=== PATIENT | female | born 1975 | race Caucasian/White ===

== ENCOUNTER 2016-10-27 12:06 | Emergency (ER) | payer SELFPAY ==
[2016-10-27] MEDS ORDERED: KETOROLAC TROMETHAMINE INJ/PF 30 MG/1 ML SDV IV ONE (12:41)
[2016-10-27] MEDS ORDERED: NORMAL SALINE 1000 ML 1,000 ML IV ONE (12:41)
[2016-10-27] MEDS ORDERED: ONDANSETRON HCL INJ/PF 4 MG/2 ML SDV IV ONE ×2 (12:41→14:15)
[2016-10-27 13:32] LABS: APPEARANCE,URINE CLEAR; BILIRUBIN,URINE NEGATIVE (NEGATIVE); GLUCOSE, URINE NEGATIVE (NEGATIVE); KETONES,URINE NEGATIVE (NEGATIVE); LEUKOCYTE ESTERASE,URINE NEGATIVE (NEGATIVE); NITRITE,URINE NEGATIVE (NEGATIVE); PROTEIN,URINE NEGATIVE (NEGATIVE); UROBILINOGEN,URINE NEGATIVE mg/dL (<2.0)
[2016-10-27 14:08] LABS: ABSOLUTE EOSINOPHILS # (AUTO) 0.1 10^3/uL (0.0-0.6); ABSOLUTE MONOCYTES (AUTO) 0.6 10^3/uL (0.1-1.4); ABSOLUTE NEUT (AUTO) 3.7 10^3/uL (1.7-8.2); BASOPHILS % (AUTO) 0.6 % (0-2); EOSINOPHILS % (AUTO) 1.4 % (0-6); HEMATOCRIT 35.5 % (36.0-47.0); HEMOGLOBIN 12.1 g/dL (12.0-15.5); HGB HCT DIFFERENCE 0.8; LYMPHOCYTES % (AUTO) 40.5 % (13-45); MEAN CORPUSCULAR HEMOGLOBIN 29.5 pg (27.0-33.4); MEAN CORPUSCULAR HGB CONC 34.1 g/dL (32.0-36.0); MEAN CORPUSCULAR VOLUME 86 fl (80-97); MONOCYTES % (AUTO) 7.7 % (3-13); RED BLOOD COUNT 4.11 10^6/uL (3.72-5.28); RED CELL DISTRIBUTION WIDTH 13.4 % (11.5-14.0); SEGMENTED NEUTROPHILS % (AUTO) 49.8 % (42-78); WHITE BLOOD COUNT 7.3 10^3/uL (4.0-10.5)
[2016-10-27] MEDS ORDERED: FENTANYL CITRATE INJ/PF 100 MCG/2 ML AMPUL IV ONE (14:15)
[2016-10-27] MEDS ORDERED: METOCLOPRAMIDE HCL INJ/PF 10 MG/2 ML SDV IV ONE (14:15)
--- NOTE | 2016-10-27 14:16 | ER Document Report ---
ED General - General Chief Complaint: Abdominal Pain Stated Complaint: ABDOMINAL PAIN,BACK PAIN,RIGHT LEG PAIN Time Seen by Provider: 10/27/16 12:40 Notes: Female with a host of chronic medical issues including radical hysterectomy congestive heart failure migraines chronic pain on an extensive opioid regimen incidentally visiting from [place] presenting with several symptoms: Most worrisome to her as her abdominal pain which has been going on for a few weeks but worse today right upper quadrant radiating to left upper quadrant constant with nausea. She said she could not take any of her pain medicine this morning. No diarrhea, normal gas normal bowel movement today but feels "distended". She has never had a bowel obstruction. She has no fevers or chills. She also has tooth pain and facial swelling migraine symptoms left- sided visual loss bilateral arm and leg weakness and an episode of bladder incontinence yesterday. She has known spinal stenosis. Denies saddle anesthesia or numbness or tingling at this time. She also has pain that radiates from her belly to her chest to her jaw. TRAVEL OUTSIDE OF THE [place] IN LAST 30 DAYS: No - Related Data Allergies/Adverse Reactions: bupropion [From Wellbutrin] Allergy (Verified 10/27/16 12:17) cyclobenzaprine [From Flexeril] Allergy (Verified 10/27/16 12:17) diphenhydramine [From Benadryl] Allergy (Verified 10/27/16 12:17) latex Allergy (Verified 10/27/16 12:17) Sulfa (Sulfonamide Antibiotics) Allergy (Verified 10/27/16 12:17) sumatriptan [From Imitrex] Allergy (Verified 10/27/16 12:17) Past Medical History - General Information source: Patient - Social History Smoking Status: Never Smoker Chew tobacco use (# tins/day): No Frequency of alcohol use: None Drug Abuse: None Family History: None Renal/ Medical History: Denies: Hx Peritoneal Dialysis Musculoskeltal Medical History: Reports Hx Arthritis Review of Systems - Review of Systems Notes: REVIEW OF SYSTEMS GEN: Denies fever, chills, weight loss ENT: Denies sore throat, nasal discharge, ear pain EYES: Denies blurry vision, eye pain, discharge thinks the whites of her eyes are turning red. CV: Denies chest pain, palpitations, edema RESP: Denies cough, shortness of breath, wheezing GI: Pain abdominal with nausea MSK: Denies joint pain/swelling, edema, SKIN: Denies rash, skin lesions LYMPH: Denies swollen glands/lymph nodes NEURO: Chronic back pain intermittent leg and arm weakness. PSYCH: Denies depression, suicidal or homicidal ideation PHYSICAL EXAMINATION General: No acute distress, well-nourished Head: Atraumatic, normocephalic ENT: Mouth normal, oropharynx moist, no exudates or tonsillar enlargement very subtle eyelid swelling on the left without redness. Eyes: Conjunctiva normal, pupils equal, lids normal Neck: No JVD, supple, no guarding CVS: Normal rate, regular rhythm, no murmurs Resp: No resp distress, equal and normal breath sounds bilaterally GI: Nondistended, soft, bilateral upper quadrant tenderness to palpation, no rebound or guarding Ext: No deformities, no edema, normal range of motion in upper and lower ext Back: No CVA or midline TTP Skin: No rash, warm Lymphatic: No lymphadeopathy noted Neuro: Awake, alert. Face symmetric. GCS 15. Plantar drift. Intact sensation. Intact strength in upper extremities. Physical Exam - Vital signs Vitals: Temp Pulse Resp BP Pulse Ox 98.0 F 89 18 158/106 H 100 10/27/16 12:15 10/27/16 12:15 10/27/16 12:15 10/27/16 12:15 10/27/16 12:15 Course - Re-evaluation Re-evalutation: 10/27/16 14:14 5-year-old female on chronic pain treatment with multiple chronic medical issues presenting with a constellation of symptoms from nearly every body system. She has normal vital signs and appears quite well. Objectively, I noticed mild left eyelid swelling but no focal visual deficits, or other neurologic symptoms. Terms of her abdomen she does have a history of abdominal surgery and has some upper abdominal pain. She states that her gallbladder is still in place but was "grainy" on a prior CT scan. Her differential at this point includes gastritis cholecystitis bowel obstruction or other intra- abdominal infection or mechanical complication. She has a host of medication allergies and a very high opiate tolerance. We discussed at length how to manage her symptoms in the emergency department and agreed on a single dose of opioid medication once she can prove that she has a ride home, as well as Reglan and Zofran. She will be kept n.p.o. and I will obtain a CT scan. 10/27/16 15:40 Lab results are reassuring. Her CT is negative. She did have a small contrast extravasation during her scan, on exam at 3:40 PM there is mild forearm swelling at the site but she has no pain with passive extension of any of her compartments, no finger tingling or restricted range of motion and no other apparent complication. I gave her instructions on how to manage this at home but I do not believe she requires extended observation in the ED. She feels better after the medications. I stressed to her that she does have a lot going on although I did not find an emergency is thakkar for her to return to [place] soon as possible to see her primary care doctor to sort out her issues. I have discussed with the patient there likely diagnosis, aftercare plan, follow -up plans and my usual and customary return precautions. They verbalized understanding of this. - Vital Signs Vital signs: Temp Pulse Resp BP Pulse Ox 98.0 F 89 18 158/106 H 100 10/27/16 12:15 10/27/16 12:15 10/27/16 12:15 10/27/16 12:15 10/27/16 12:15 - Laboratory Result Diagrams: 10/27/16 13:52 10/27/16 13:52 Laboratory results interpreted by me: 10/27/16 10/27/16 13:52 13:52 Hct 35.5 L AST 43 H - Diagnostic Test Radiology reviewed: Image reviewed, Reports reviewed Discharge - Discharge Clinical Impression: Abdominal pain, other specified site Condition: Good Disposition: HOME, SELF-CARE Instructions: Abdominal Pain ([facility]) Additional Instructions: Please follow-up with your regular doctor within 5-7 days
[2016-10-27 14:32] LABS: ALANINE AMINOTRANSFERASE 50 U/L (9-52); ALBUMIN 4.4 g/dL (3.5-5.0); ALKALINE PHOSPHATASE 66 U/L (38-126); ANION GAP 12 (5-19); ASPARTATE AMINO TRANSFERASE 43 U/L (14-36); BILIRUBIN,DIRECT 0.3 mg/dL (0.0-0.4); BILIRUBIN,TOTAL 0.3 mg/dL (0.2-1.3); BLOOD UREA NITROGEN 17 mg/dL (7-20); CALCIUM 9.5 mg/dL (8.4-10.2); CARBON DIOXIDE 26 mmol/L (22-30); CHLORIDE 103 mmol/L (98-107); CREATININE RESULT 0.62 mg/dL (0.52-1.25); GLUCOSE 94 mg/dL (75-110); LIPASE 76.9 U/L (23-300); POTASSIUM 4.6 mmol/L (3.6-5.0); SODIUM 140.9 mmol/L (137-145); TOTAL PROTEIN 7.5 g/dL (6.3-8.2)
--- NOTE | 2016-10-27 15:31 | RADIOLOGY REPORT (SQ) ---
EXAM DESCRIPTION: CT ABD/PELVIS WITH IV ONLY COMPLETED DATE/TIME: 10/27/2016 3:21 pm REASON FOR STUDY: abd pain COMPARISON: None. TECHNIQUE: CT scan of the abdomen and pelvis performed using helical scanning technique with dynamic intravenous contrast injection. No oral contrast. Images reviewed with lung, soft tissue, and bone windows. Reconstructed coronal and sagittal MPR images reviewed. Delayed images for evaluation of the urinary system also acquired. All images stored on PACS. All CT scanners at this facility use dose modulation, iterative reconstruction, and/or weight based d osing when appropriate to reduce radiation dose to as low as reasonably achievable (ALARA). [facility]: Dose Right [facility]: CareDose [facility]: Dose Right [facility]: Teradose 4D [facility]: Venuemob CONTRAST TYPE AND DOSE: contrast/concentration: Isovue 370.00 mg/ml; Total Contrast Delivered: 90.0 ml; Total Saline Delivered: 29.5 ml RENAL FUNCTION: BUN 17 creatinine 0.62. RADIATION DOSE: Up-to-date CT equipment and radiation dose reduction techniques were employed. CTDIv ol: 14.2 - 18.6 mGy. DLP: 1708 mGy-cm.. LIMITATIONS: None. FINDINGS: LOWER CHEST: No significant findings. No nodules or infiltrates. LIVER: Normal size. No masses. No dilated ducts. SPLEEN: Normal size. No focal lesions. PANCREAS: No masses. No significant calcifications. No adjacent inflammation or peripancreatic fluid collections. Pancreatic duct not dilated. GALLBLADDER: No identified stones by CT criteria. No inflammatory changes to suggest cholecystitis. ADRENAL GLANDS: No significant masses or asymmetry. RIGHT KIDNEY AND URETER: No solid masses. No significant calcifications. No hydronephrosis or hyd roureter. LEFT KIDNEY AND URETER: No solid masses. No significant calcifications. No hydronephrosis or hydr oureter. AORTA AND VESSELS: No aneurysm. No dissection. Renal arteries, SMA, celiac without stenosis. RETROPERITONEUM: No retroperitoneal adenopathy, hemorrhage or masses. BOWEL AND PERITONEAL CAVITY: No masses or inflammatory changes. No free fluid or peritoneal masses. APPENDIX: Surgically absent. PELVIS: Numerous surgical clips in the lower abdomen and pelvis. No mass. No free fluid. Normal namrata dder. ABDOMINAL WALL: No masses. No hernias. BONES: No significant or acute findings. OTHER: No other significant finding. IMPRESSION: NO SIGNIFICANT OR ACUTE FINDING IN THE ABDOMEN OR PELVIS ON CT SCAN WITH IV CONTRAST. TECHNICAL DOCUMENTATION: JOB ID: [id number] Quality ID # [id number]: Final reports with documentation of one or more dose reduction techniques (e.g., Au tomated exposure control, adjustment of the mA and/or kV according to patient size, use of iterative reconstruction technique) 2010 [employer]- All Rights Reserved
[2016-10-27 17:58] VITALS: BP 152/98
--- NOTE | 2016-10-28 12:46 | EKG REPORT ---
SEVERITY:- NORMAL ECG - SINUS RHYTHM : Confirmed by: Rachel Nguyen MD 28-Oct-2016 12:46:29
== END 2016-10-27 17:54 | disposition home or self-care (01) ==
LOC: ER 12:06
DX: R10.11 Right upper quadrant pain (principal); R11.0 Nausea; K02.9 Dental caries, unspecified; R22.0 Localized swelling, mass and lump, head; H54.61 Unqualified visual loss, right eye, normal vision left eye; R32 Unspecified urinary incontinence; R53.1 Weakness; M48.00 Spinal stenosis, site unspecified; M54.9 Dorsalgia, unspecified; G89.29 Other chronic pain; Z79.891 Long term (current) use of opiate analgesic; Z90.710 Acquired absence of both cervix and uterus; Z88.8 Allergy status to other drugs, medicaments and biological substances; Z91.040 Latex allergy status; Z88.2 Allergy status to sulfonamides; Z88.6 Allergy status to analgesic agent
CPT/HCPCS: 93005; 99284; 96374; 96375; 36415; 83690; 85025; 80053; 81001; 74177; 93010; J3010; J1885; J2765; J2405; J7030